=== PATIENT | female | born 1975 | race Two or more races ===

== ENCOUNTER 2016-02-27 14:14 | Emergency (ER) | payer MEDICAID ==
[2016-02-27] MEDS ORDERED: HYDROMORPHONE HCL 1 MG/ML SYRINGE ONE (16:07)
[2016-02-27] MEDS ORDERED: ONDANSETRON 4 MG/2ML 2 ML VIAL ONE (16:07)
[2016-02-27 16:23] LABS: SPECIFIC GRAVITY 1.015 (1.001-1.030); URINE BILIRUBIN NEGATIVE (NEGATIVE); URINE BLOOD 1+ (NEGATIVE); URINE GLUCOSE (UA) NEGATIVE (NEGATIVE); URINE LEUKOCYTE ESTERASE NEGATIVE (NEGATIVE); URINE NITRITE NEGATIVE (NEGATIVE); URINE PROTEIN NEGATIVE (NEGATIVE); URINE UROBILINOGEN NORMAL (0-1 mg/dl)
[2016-02-27 16:23] LABS: ABSOLUTE NEUTROPHIL COUNT 10.6 K/mm3 (1.8-7.7); BASO % 0.2 % (0.2-1.0); EOS % 0.3 % (0.9-2.9); HEMATOCRIT 39.8 % (37.0-47.0); HEMOGLOBIN 13.5 gm/l (12.0-16.0); IMM NEUT% 0.3 % (0-1); LYMPH # 1.9 (1.0-4.8); LYMPH % 14.1 % (15-45); MEAN CELL VOLUME 96.6 fl (81.0-99.0); MEAN CORPUSCULAR HEMOGLOBIN 32.8 pg (27.0-31.0); MEAN CORPUSCULAR HGB CONC 33.9 g/dl (33.0-37.0); MEAN PLATELET VOLUME 9.4 fl (7.4-10.4); MONO # 0.8 (0.0-0.8); MONO % 5.9 % (4-12); NEUT % 79.2 % (43-75); PLATELET COUNT 366 K/mm3 (130-400)
[2016-02-27 16:25] LABS: URINE APPEARANCE CLEAR; URINE COLOR YELLOW
[2016-02-27 16:34] LABS: URINE BACTERIA NONE SEEN; URINE EPITHELIAL CELLS 0-2 /hpf; URINE RBC 0-2 /hpf; URINE WBC 0-2 /hpf
[2016-02-27 16:36] LABS: ALBUMIN 4.2 gm/dL (3.5-5.7); CALCIUM 9.3 mg/dL (8.6-10.3)
--- NOTE | 2016-02-27 17:06 | US ---
Exam: Gallbladder ultrasound COMPARISON: None INDICATION: Right upper quadrant pain for 3 months. Last ate at 10:00 a.m FINDINGS: Gallbladder ultrasound was obtained. A few mobile gallstones are identified within the gallbladder measuring up to 9 mm. There is no gallbladder wall thickening or pericholecystic fluid. There was a negative sonographic Thomas sign. Common bile duct normal at 5 mm. IMPRESSION: Cholelithiasis without sonographic features of acute cholecystitis or biliary ductal dilation.
== END 2016-02-27 18:31 | disposition home or self-care (01) ==
LOC: ED 14:14
DX: R10.11 Right upper quadrant pain (principal)
CPT/HCPCS: 83690; 84703; 85025; 80053; 81001; 76705; 96375; 99284 ×2; 96374; J1170; J2405